=== PATIENT | female | born 1970 | race Hispanic/Latino ===

== ENCOUNTER 2020-07-20 14:11 | Outpatient (CLI) | payer BC ==
--- NOTE | 2020-07-20 14:44 | RAD ---
Frontal and lateral imaging of the left forearm: 07/20/2020 COMPARISON: None HISTORY: Pain, no injury FINDINGS: No fracture or dislocation. No radiopaque foreign body or subcutaneous gas. IMPRESSION: No acute findings.
--- NOTE | 2020-07-20 14:45 | RAD ---
Left wrist 3 views: 07/20/2020 COMPARISON: None HISTORY: Pain, no history of trauma FINDINGS: There is mild radiocarpal joint space narrowing. No widening of the scapholunate interval. Alignment appears normal on the lateral view. No acute fracture or dislocation. IMPRESSION: No acute findings.
== END 2020-07-20 14:12 | disposition home or self-care (01) ==
LOC: BICRAD 14:11
PROVIDERS: ATTEND Nurse Practitioner Family
DX: M25.532 Pain in left wrist (principal)